=== PATIENT | male | born 1940 | race Caucasian/White ===

== ENCOUNTER → 2017-02-18 | Outpatient (CLI) | payer MEDICARE, OTHER ==
[2017-02-18] VITALS (9 sets, daily range): BP systolic 107–121; BP diastolic 67–79; PULSE 64–70
[~2017-02-18] VITALS: Ht 172.7 cm; Wt 58.1 kg
[~2017-02-18] MED LIST: CALCIUM 600/VIT1 CAP PO; CALCIUM CARBON600 M1 PO; CENTRUM SILVER1 TAB PO; CEPHALEXIN500 M1 PO; COLACE 100100 MG/CAP PO; COUMADIN 5MG5 MG/TAB PO; LEXAPRO 5MG5 MG PO; LOPRESSOR 225 MG/TAB PO; LOPRESSOR 550 MG/TAB PO; OPDIVO10 MG/ML IV; SYNTHROID0.1 MG/TAB PO; VIT B12 PO; VITAMIN E ACET100 ML; XANAX .25M0.25 MG/TA PO; ZOMETA
[2017-02-18 12:35] LABS: INR 1.2 (0.8-3.0); PROTHROMBIN TIME 12.8 SECONDS (9.7-12.8)
== END ==
LOC: COL.RAD 02-12 12:00
PROVIDERS: Internal Medicine Medical Oncology
DX: C79.89 Secondary malignant neoplasm of other specified sites (principal); C34.82 Malignant neoplasm of overlapping sites of left bronchus and lung
CPT/HCPCS: 25757